=== PATIENT | male | born 1955 | race Caucasian/White ===

== ENCOUNTER → 2022-03-03 15:43 | Outpatient (BNVA) | payer OTHER, MEDICAID, SELFPAY | PROVIDERS: PCP Family Medicine; Visit Provider Urology | DX: E11.69 Type 2 diabetes mellitus with other specified complication (principal); N52.1 Erectile dysfunction due to diseases classified elsewhere | CPT/HCPCS: 99202 ==

== ENCOUNTER 2022-06-02 15:39 | Outpatient (AMB) | payer MEDICAID, SELFPAY ==
--- NOTE | 2022-06-02 15:57 | A.OFFVIS_ITS ---
Intake Intake Visit Reasons: 3 month follow up Intake Note: Patient is present for follow up Allergies No Known Allergies Allergy (Verified 05/31/23 13:08) HPI HPI Comments History of Present Illness Details Moises is a pleasant gentleman from [place]. He is a patient of Dr. Mcmanus. He is seen for the following urologic conditions - erectile dysfunction with background d iabetes Erectile dysfunction Long-term type 2 diabetic On medication for hypertension and dyslipidemia Prior treatment for syphilis Failing on demand Viagra Current therapy daily 10 mg tadalafil with on demand sildenafil 100 mg PFSH Medical History Diabetes Elevated cholesterol HTN (hypertension) Surgical History History of implantation of penile prosthesis Family History Mother No problems noted. Father No problems noted. Social History Household Members: None Housing: House Are you a primary career development coordinator/teacher to a significant other at home: No Do you presently have visiting nurse or other home services: No Patient Tobacco Use Status: Never used Tobacco Review of Systems Const Denies chills and Denies fever(s) Card Reports no additional complaints and Denies syncope Resp Denies cough GI Denies abdominal pain and Denies heartburn Reports as per HPI and Denies change in libido Neuro Denies syncope Psych Denies change in libido Endo Denies change in libido Physical Exam Const General: cooperative, healthy appearing, comfortable and no acute distress Orientation/consciousness: patient oriented x3 HEENT Face and sinus: Yes normal facial exam Mouth: moist mucous membranes Neck Neck: Yes normal visual inspection, Yes full ROM and Yes trachea midline Chest Chest palpation & inspection: normal inspection of the chest Resp Effort & Inspection: normal respiratory effort, able to speak in complete sentences and no respiratory distress GI Inspection: Yes normal to inspection Back/Spine/Pelvis Cervical Spine: normal cervical lordosis Thoracic/Lumbar Spine: thoracic and lumbar spine normal to inspection Skin General skin exam: no rashes or lesions noted Neuro General: patient oriented x3, gait normal, tone normal and moves all extremities Extrem General: Yes normal to inspection and Yes capillary refill normal Assessment & Plan Assessment & Plan (1) Dysuria: Code(s): R30.0 - Dysuria (2) Erectile dysfunction associated with type 2 diabetes mellitus: Code(s): E11.69 - Type 2 diabetes mellitus with other specified complication; N52.1 - Erectile dysfunction due to diseases classified elsewhere (3) BPH w urinary obs/LUTS: Code(s): N40.1 - Benign prostatic hyperplasia with lower urinary tract symptoms; N13.8 - Other obstructive and reflux uropathy Plan Trial high-dose tadalafil 6m f/u Medications: Refilled tadalafil 10 mg PO DAILY 90 tabs 1RF sexual activity 90 days E11.69 - Type 2 diabetes mellitus with other specified complication, N52.1 - Erectile dysfunction due to diseases classified elsewhere, N52.9 - Male erectile dysfunction, unspecified, N52.01 - Erectile dysfunction due to arterial insufficiency Patient Instructions: Imaging studies, laboratory and physical exam results were discussed and reviewed in detail. No major barriers to patient understanding were identified. An opportunity to ask questions regarding the treatment plan was provided. All questions were answered. The patient expressed understanding and agreement with the above treatment plan. The patient is aware they should contact our office by phone for worsening of their current condition or the appearance of new urologic symptoms. Compliance is encouraged with any medications and followup testing that is ordered. It is a privilege to participate in the urologic care of your patient. If you have any questions or concerns regarding treatment for the above conditions, or other urologic issues, please do not hesitate to contact me. The office telephone contact is [phone]. This note is constructed using voice recognition software. While every effort has been made to ensure accuracy solar sales consultant errors may have been included. Yours sincerely, Dr Efra Zambrano MD, [facility] - Urology Providers of Expert, Compassionate Care for the Genitourinary System Coding Level of Care Code Est Pt Level 3 (85116) Diagnoses Dysuria R30.0 Erectile dysfunction associated with type 2 diabetes mellitus E11.69; N52.1 BPH w urinary obs/LUTS N40.1; N13.8
== END 2022-06-02 16:11 | disposition home or self-care (01) ==
LOC: HO.HUSH 15:40
PROVIDERS: PCP Family Medicine; Visit Provider Urology
DX: R30.0 Dysuria (principal); E11.69 Type 2 diabetes mellitus with other specified complication; N52.1 Erectile dysfunction due to diseases classified elsewhere; N40.1 Benign prostatic hyperplasia with lower urinary tract symptoms; N13.8 Other obstructive and reflux uropathy
CPT/HCPCS: 99213; 99499

== ENCOUNTER → 2022-06-02 15:39 | Outpatient (BNVA) | payer MEDICAID, SELFPAY | PROVIDERS: PCP Family Medicine; Visit Provider Urology | DX: E11.69 Type 2 diabetes mellitus with other specified complication (principal); N52.1 Erectile dysfunction due to diseases classified elsewhere; R30.0 Dysuria; N40.1 Benign prostatic hyperplasia with lower urinary tract symptoms; N13.8 Other obstructive and reflux uropathy | CPT/HCPCS: 99212 ==

== ENCOUNTER 2022-11-14 11:45 | Outpatient (REF) | payer MEDICAID, SELFPAY ==
--- NOTE | ~2022-11-14 | XR_ITS ---
EXAMINATION: XR WRIST, LEFT CLINICAL INFORMATION: Pain COMPARISON: None available. TECHNIQUE: Four views of the left wrist. FINDINGS: Bone alignment is normal. No fracture or dislocation. There are small subchondral cysts or erosive changes in the lunate and triquetrum. 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 Joint spaces are otherwise normal. Soft tissue arterial calcification. XR/XR wrist LT min 3V IMPRESSION: No fracture or dislocation. Subchondral cystic changes at the lunotriquetral joint. 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
== END 2022-11-14 11:46 | disposition home or self-care (01) ==
LOC: HO.XRAY 11:45
PROVIDERS: PCP Family Medicine; Visit Provider Family Medicine
DX: M25.532 Pain in left wrist (principal)
CPT/HCPCS: 73110

== ENCOUNTER → 2022-12-08 14:41 | Outpatient (BNVA) | payer MEDICAID, SELFPAY | PROVIDERS: PCP Family Medicine; Visit Provider Urology | DX: E11.69 Type 2 diabetes mellitus with other specified complication (principal); N52.1 Erectile dysfunction due to diseases classified elsewhere; Z79.84 Long term (current) use of oral hypoglycemic drugs; Z79.899 Other long term (current) drug therapy | CPT/HCPCS: 99212 ==

== ENCOUNTER 2023-01-25 11:00 | Outpatient (REF) | payer MEDICAID, SELFPAY ==
[2023-01-25 13:05] LABS: Estimated Average Glucose 146 mg/dL; Hemoglobin A1c % 6.7 %
[2023-02-01 13:45] LABS: Testosterone, Total 279 ng/dL (250-1100)
== END 2023-01-25 11:01 | disposition home or self-care (01) ==
LOC: HO.LAB 11:00
PROVIDERS: PCP Urology; Visit Provider Urology
DX: E11.69 Type 2 diabetes mellitus with other specified complication (principal); N52.1 Erectile dysfunction due to diseases classified elsewhere
CPT/HCPCS: 36415; 83036; 84403

== ENCOUNTER 2023-02-12 15:59 | Outpatient (REF) | payer MEDICAID, SELFPAY ==
[2023-02-12 18:33] LABS: Estimated Average Glucose 134 mg/dL; Hemoglobin A1c % 6.3 %
[2023-02-12 18:52] LABS: Alanine Aminotransferase 28 U/L (0-40); Albumin Level 4.4 g/dL (3.5-5.0); Alkaline Phosphatase 42 U/L (39-117); Anion Gap 15 (12-20); Aspartate Amino Transferase 25 U/L (5-37); Bilirubin Total 0.6 mg/dL (0.0-1.0); Blood Urea Nitrogen 23 mg/dL (9-16); Calcium 10.3 mg/dL (8.4-10.2); Carbon Dioxide 23 mmol/L (22-29); Chloride 104 mmol/L (96-108); Estimated Glomerular Filt Rate > 60; Glucose Random 89 mg/dL (60-115); Potassium 4.3 mmol/L (3.3-5.1); Sodium 138 mmol/L (135-145); Total Protein 7.8 g/dL (6.5-8.0)
== END 2023-02-12 16:00 | disposition home or self-care (01) ==
LOC: HO.HHCL 15:59
PROVIDERS: Visit Provider Family Medicine
DX: E11.65 Type 2 diabetes mellitus with hyperglycemia (principal)
CPT/HCPCS: 36415; 80053; 83036

== ENCOUNTER 2023-02-13 15:50 | Outpatient (AMB) | payer MEDICAID, SELFPAY ==
--- NOTE | 2023-02-13 15:53 | A.OFFVIS_ITS ---
Intake Intake Visit Reasons: follow up/Testo(set) Intake Note: Patient is present for Follow Up labs Urology Med: Tadalafil , Sildenafil Antibiotic Allergy: None Blood Thinner: None Allergies No Known Allergies Allergy (Verified 06/02/22 15:57) HPI HPI Comments History of Present Illness Details Moises is a pleasant gentleman from [place]. He is a patient of Dr. Mcmanus. He is seen for the following urologic conditions - erectile dysfunction with background diabetes Follow-up for erectile dysfunction HbA1c now down to 6.3 Would be candidate for prosthetic He is interested in moving forward Continues to use vacuum pump daily Erectile dysfunction Long-term type 2 diabetic On medication for hypertension and dyslipidemia Prior treatment for syphilis Failing on demand Viagra Current therapy daily 10 mg tadalafil with on demand sildenafil 100 mg Review of Systems Const Denies chills and Denies fever(s) Card Reports no additional complaints and Denies syncope Resp Denies cough GI Denies abdominal pain and Denies heartburn Reports as per HPI and Denies change in libido Neuro Denies syncope Psych Denies change in libido Endo Denies change in libido Physical Exam Const General: cooperative, healthy appearing, comfortable and no acute distress Orientation/consciousness: patient oriented x3 HEENT Face and sinus: Yes normal facial exam Mouth: moist mucous membranes Neck Neck: Yes normal visual inspection, Yes full ROM and Yes trachea midline Chest Chest palpation & inspection: normal inspection of the chest Resp Effort & Inspection: normal respiratory effort, able to speak in complete sentences and no respiratory distress GI Inspection: Yes normal to inspection Back/Spine/Pelvis Cervical Spine: normal cervical lordosis Thoracic/Lumbar Spine: thoracic and lumbar spine normal to inspection Skin General skin exam: no rashes or lesions noted Neuro General: patient oriented x3, gait normal, tone normal and moves all extremities Extrem General: Yes normal to inspection and Yes capillary refill normal Assessment & Plan Assessment & Plan (1) Erectile dysfunction associated with type 2 diabetes mellitus: Code(s): E11.69 - Type 2 diabetes mellitus with other specified complication; N52.1 - Erectile dysfunction due to diseases classified elsewhere Plan Risks, benefits and alternatives to therapy were discussed. These include but are not limited to infection, bleeding, damage to local organs and tissues, need for further interventions. Anesthetic risks regarding cardiac arrhythmia, blood clots, and potential mortality were discussed. The patient understands the typical recovery time and the outpatient nature of the procedure. After consideration of these risks the patient gives full infor med consent and they wish to move ahead with the procedure. Penile prosthetic 3 piece insertion Patient Instructions: Imaging studies, laboratory and physical exam results were discussed and reviewed in detail. No major barriers to patient understanding were identified. An opportunity to ask questions regarding the treatment plan was provided. All questions were answered. The patient expressed understanding and agreement with the above treatment plan. The patient is aware they should contact our office by phone for worsening of their current condition or the appearance of new urologic symptoms. Compliance is encouraged with any medications and followup testing that is ordered. It is a privilege to participate in the urologic care of your patient. If you have any questions or concerns regarding treatment for the above conditions, or other urologic issues, please do not hesitate to contact me. The office telephone contact is [phone]. This note is constructed using voice recognition software. While every effort has been made to ensure accuracy senior medical transcriptionist errors may have been included. Yours sincerely, Dr Efra Zambrano MD, [facility] - Urology Providers of Expert, Compassionate Care for the Genitourinary System Coding Level of Care Code Est Pt Level 4 (23097) Diagnoses Erectile dysfunction associated with type 2 diabetes mellitus E11.69; N52.1
== END 2023-02-13 16:26 | disposition home or self-care (01) ==
PROVIDERS: Visit Provider Urology
DX: E11.69 Type 2 diabetes mellitus with other specified complication (principal); N52.1 Erectile dysfunction due to diseases classified elsewhere
CPT/HCPCS: 99214

== ENCOUNTER → 2023-02-13 15:50 | Outpatient (BNVA) | payer MEDICAID, SELFPAY | PROVIDERS: Visit Provider Urology | DX: E11.69 Type 2 diabetes mellitus with other specified complication (principal); N52.1 Erectile dysfunction due to diseases classified elsewhere | CPT/HCPCS: 99212 ==

== ENCOUNTER 2023-04-30 06:10 | Day surgery (SDC) | payer MEDICAID, SELFPAY ==
[2023-04-26 13:03] VITALS: BMI 24.8
[2023-04-26 13:17] VITALS: BMI 23.9
--- NOTE | 2023-04-27 11:58 | P.CONAN_ITS ---
Documented by User: Nettie Jennings NP 04/27/23 12:00 HPI - Anesthesia Eval Consult details Narrative: 67yo M for Penile Prosthesis Insertion Medically optimized per PCP PMF Active Problems Active Problems: All Active Problems (Updated 04/26/23 @ 13:15 by Daya Mcgregor RN) Erectile dysfunction associated with type 2 diabetes mellitus (Acute) Past Medical History Medical History Diabetes Elevated cholesterol HTN (hypertension) Surgical History Surgical History No pertinent past surgical history Social History Social History Household Members: None Housing: House Are you a primary healthcare economics manager to a significant other at home: No Do you presently have visiting nurse or other home services: No Patient Tobacco Use Status: Never used Tobacco Use of substances other than those prescribed or required for medical reasons: No Have you been hit, kicked, punched, or otherwise hurt by someone within the past year? If so, by whom?: No Are you DNR?: No Advance Directives: No Advance Directives Information Provided: Yes Advance Directives on File: No Recently lost weight without trying: No Nutrition Risks: No Nutritional Risk Meds Allergies Allergy/AdvReac Type Severity Reaction Status Date / Time No Known Allergies Allergy Verified 04/26/23 13:15 Home Medications Medication Instructions Recorded Confirmed Last Taken Type glipizide 10 mg tablet 10 mg PO BID 03/03/22 04/26/23 Unknown History lisinopril 10 mg tablet 10 mg PO DAILY 03/03/22 04/26/23 Unknown History metformin 1,000 mg tablet 1,000 mg PO DAILY 03/03/22 04/26/23 Unknown History simvastatin 20 mg tablet 20 mg PO QPM 03/03/22 04/26/23 Unknown History Exam Exam Date and Time: April 27, 2023 1158 Height,Weight and Vital Signs: Height 5 ft 4.96 in Weight 65 kg Pertinent Lab Results Pertinent Lab Results: Laboratory Tests 02/12/23 16:04 Sodium 138 Potassium 4.3 Chloride 104 Carbon Dioxide 23 BUN 23 H Creatinine 0.95 Assessment and Plan Assessment Anesthesia Assessment: Chart Reviewed Documented by User: Shea Cameron MD 04/30/23 08:52 PMFSH Active Problems Active Problems: All Active Problems (Updated 04/30/23 @ 08:49 by Shea Cameron MD) Erectile dysfunction associated with type 2 diabetes mellitus (Acute) Past Medical History Medical History Diabetes Elevated cholesterol HTN (hypertension) Surgical History Surgical History No pertinent past surgical history Social History Social History Household Members: None Housing: House Are you a primary healthcare economics manager to a significant other at home: No Do you presently have visiting nurse or other home services: No Patient Tobacco Use Status: Never used Tobacco Use of substances other than those prescribed or required for medical reasons: No Have you been hit, kicked, punched, or otherwise hurt by someone within the past year? If so, by whom?: No Are you DNR?: No Advance Directives: No Advance Directives Information Provided: Yes Advance Directives on File: No Recently lost weight without trying: No Nutrition Risks: No Nutritional Risk Meds Allergies Allergy/AdvReac Type Severity Reaction Status Date / Time No Known Allergies Allergy Verified 04/26/23 13:15 Home Medications Medication Instructions Recorded Confirmed Last Taken Type glipizide 10 mg tablet 10 mg PO BID 03/03/22 04/26/23 Unknown History lisinopril 10 mg tablet 10 mg PO DAILY 03/03/22 04/26/23 Unknown History metformin 1,000 mg tablet 1,000 mg PO DAILY 03/03/22 04/26/23 Unknown History simvastatin 20 mg tablet 20 mg PO QPM 03/03/22 04/26/23 Unknown History Exam Height,Weight and Vital Signs: Height 5 ft 4.96 in Weight 65 kg Vital Signs Temp Pulse Resp BP Pulse Ox O2 Del Method 04/30/23 07:59 97.4 F 67 16 139/75 97 Room Air
[2023-04-30] VITALS (10 sets, daily range): BP systolic 135–155; BP diastolic 66–75; PULSE 64–73; RESP 16–20; TEMP 36.1–36.3; O2SAT 96–100; BMI 24.2
[2023-04-30] MEDS: Lactated Ringers 1,000 ML 100 ML IVCONT (08:29)
[2023-04-30 08:56] LABS: Glucose, Whole Blood 135 mg/dL (60-115)
--- NOTE | 2023-04-30 09:37 | PC.NURSE ---
patient speaks tamazight or yoruba. used a [employer] derrick boat captain to let patient know that we are awaiting for the prosthesis from another hospital if available to proceed with procedure. patient aware of plan of care. used a [employer] derrick boat captain.
[2023-04-30 14:20] LABS: Glucose, Whole Blood 59 mg/dL (60-115)
[2023-04-30 14:20] LABS: Glucose, Whole Blood 144 mg/dL (60-115)
--- NOTE | 2023-04-30 14:22 | P.HPSUR_ITS ---
Pre-Procedural Eval Section A Date of Service: 04/30/23 The patient is an INPATIENT: No Changes since office visit: No Cold of Flu in the past 2 weeks, No New Medical Problems, No Changes in Medication and No Patient answered all questions The History & Physical has been completed within 30 days and I have reviewed it.: Yes Section B Chief Complaint: Type 2 diabetes mellitus with other specified comp Relevant Social History: None Present Medications: see Short Stay Collaborative assessment Medical History: No relevant PMH History of Previous Operations: No relevant previous surgery Allergies: Allergies Allergy/AdvReac Type Severity Reaction Status Date / Time No Known Allergies Allergy Verified 04/26/23 13:15 Review of Systems Sugical H&P ROS: Negative: Constitution, Cardiovascular, Respiratory, Neur ological, Psychiatric, Hem-Onc, Allergic/Immunologic, Gastrointestinal, Genitourinary, Musculoskeletal, Integumentary, Endocrine and Eyes/Ears/Nose/Throat Exam Surgical H&P Exam: Normal: HEENT, Normal: Heart, Normal: Lungs, Normal: Extremities, Normal: Abdomen, Normal: Skin and Normal: Neurological Plan Diagnosis/Plan: Unchanged ( penile prosthetic placement) I have reviewed the history and physical and performed a pertinent physical examination on my patient. No changes have occurred unless specified. Time Spent With Patient Time: Total time managing care of this patient today ____ minutes.
--- NOTE | 2023-04-30 14:39 | HO.ANESPROP2 ---
HPI - Anesthesia Eval Consult details Narrative: for penile prosthesis PMFSH Active Problems Active Problems: All Active Problems (Updated 04/27/23 @ 12:23 by Shayy Porras RN) Erectile dysfunction associated with type 2 diabetes mellitus (Acute) Past Medical History Medical History Diabetes Elevated cholesterol HTN (hypertension) Family History Family history of problems with anesthesia: No Surgical History Surgical History No pertinent past surgical history History of Problems with Anesthesia: No Social History Social History Household Members: None Housing: House Are you a primary gericare aide teacher to a significant other at home: No Do you presently have visiting nurse or other home services: No Patient Tobacco Use Status: Never used Tobacco Use of substances other than those prescribed or required for medical reasons: No Have you been hit, kicked, punched, or otherwise hurt by someone within the past year? If so, by whom?: No Are you DNR?: No Advance Directives: No Advance Directives Information Provided: Yes Advance Directives on File: No Recently lost weight without trying: No Nutrition Risks: No Nutritional Risk Meds Allergies Allergy/AdvReac Type Severity Reaction Status Date / Time No Known Allergies Allergy Verified 04/26/23 13:15 Active Medications: Current Medications Lactated Ringer's (Lr) 1,000 mls @ 100 mls/hr IVCONT .Q10H ADA Last Admin: 04/30/23 08:29 Dose: 100 mls/hr Home Medications Medication Instructions Recorded Confirmed Last Taken Type glipizide 10 mg tablet 10 mg PO BID 03/03/22 04/26/23 Unknown History lisinopril 10 mg tablet 10 mg PO DAILY 03/03/22 04/26/23 Unknown History metformin 1,000 mg tablet 1,000 mg PO DAILY 03/03/22 04/26/23 Unknown History simvastatin 20 mg tablet 20 mg PO QPM 03/03/22 04/26/23 Unknown History Exam Exam Date and Time: April 30, 2023 1439 Height,Weight and Vital Signs: Height 5 ft 4.96 in Weight 65.828 kg Last Vital Signs Temp 97.4 F 04/30/23 07:59 Pulse 67 04/30/23 07:59 Resp 16 04/30/23 07:59 BP 139/75 04/30/23 07:59 Pulse Ox 97 04/30/23 07:59 O2 Del Method Room Air 04/30/23 07:59 Pertinent Lab Results Pertinent Lab Results: Laboratory Tests 04/30/23 04/30/23 04/30/23 08:53 13:53 14:16 POC Glucose 135 H 59 L* 144 H Airway Mallampati Class: I TM Dist: >3cm Neck ROM: Full Denture: Upper and Lower Heart: ok Lungs: ok Assessment and Plan Assessment Anesthesia Assessment: Anesthesia Plan Discussed and Chart Reviewed Final Anesthetic Review Family History of Problems with Anesthesia: No History of Problems with Anesthesia: No NPO: Yes ASA Class: II Final Preanesthetic Review: No Changes in Pt Med Stat, Meds/Allgs Chart Reviewed, Consent Obtained/Reviewed and Anes Risks/Benef Reviewed Patient Risk: Low Procedure Risk: Low Anesthetic Plan Anesthetic Plan: GA and Agree w/ Assess. and Plan Disposition: Standard PACU
--- NOTE | 2023-04-30 17:16 | P.OP_ITS ---
Operative Note Operative Note Date of Service: 04/30/23 Narrative: PreOperative Diagnosis: Erectile dysfunction in setting of diabetes Post Operative Diagnosis: Erectile dysfunction with Peyronie's disease in setting of diabetes Procedure: Placement of inflatable penile prosthetic, manual manipulation for adjustment of prior needs disease Surgeon: Dr Efra Zambrano Anesthesia: General Indications for procedure: Progressive erectile dysfunction in setting of diabetes. Non responsive to oral or injectable medications. Maximum doses have been trialed. Has completed minimum of 6 weeks with penile vacuum pump in order to maximize potential placement. Is aware of the risks and benefits particularly related to mechanical failure, infection, loss of sensation. Procedure: After informed consent was verified the patient was brought to the operating room and placed in a supine position. Anesthesia was administered per protocol. The patient was shaved with clippers, and prepped with cholhexidine based solution. He was draped in a sterile fashion. Safety pause time-out performed. Standard antibiotic per modified 2019 guideline - IV Kefzol, gentamicin and fluconazole. Tyler catheter was placed on the field. Bladder was drained. [place] retractor with penile support was placed. Local antibiotics infiltrated horizontally 1,5cm proximal from the penoscrotal junction. Dorsal nerve block was placed inferior to the symphsis pubis in the midline and perineal/crural block was placed 1 fingerbreadth lateral to the midline angled at 45 degrees. A horizontal scrotal incision was made and taken down to the tunica. Dissection was performed 1st on the left side and then on the right side to fully expose the proximal tunica of the corpora. Midline dissection was required to lift off the median attachments. At this point stay hooks were placed. A double row of 3-0 Vicryl stay sutures were placed through the distal tunica with 1cm spacing and labeled and marked bilaterally. Firstly on the left side an incision was made between the 2 rows of stay sutures through the tunica. This was approximately 2.5 cm in length. Using Hegar dilators the corporal body was dilated until it could accept a 12 Hegar dilator. The distal portion of the corpora was noted to be fibrosed with distinct feeling of Peyronie's plaque running circumferentially and causing narrowing of the corporal body. A similar dissection was repeated on the right-hand side. The distal corporal plaque from the Peyronie's was also notable. After dilation each corporal body were washed with antibiotic normal saline. At this point the measuring device was introduced. Posterior measured at 7cm and the front measured approximately 10 cm on the left. On the right 8 cm and 10 cm respectively. Based on the considerations from dilatation a penile prosthetic [employer] 15 cm CX with 3cm On the right and 1 cm on the left. Prior to prosthetic preparation using blunt dissection the right inguinal canal was palpated and using a Francy clamp a small hole was punched in the posterior wall of the medial aspect of the inguinal canal. This was enlarged with the tip of the index finger. A flat reservoir was then placed through this hole into the preperitoneal, retro body wall space. This was filled with 95 cc and had minimal pressure. Clamps were placed. The introducer needle was used to thread the distal tip thread from the prostatic on the left side. This was then placed through the corporal defect and the needle advanced out through the glans of the penis. The prosthetic was then placed into the corporal body with the posterior aspect 1st using the enclosed pusher device. Once the posterior aspect had been introduced the anterior aspect was then introduced and brought out to the distal portion of the corpora. This was done 1st on the left side and then repeated on the right side. The prosthetic was then inflated approximately 80 cc of normal saline. The penile prosthetic was deflated. The stay sutures through the tunica were then secured bilaterally. The penile prosthetic was inflated for a 2nd time. Molding was performed in order to address the distal Peyronie's disease. The scrotum was irrigated. The excess tubing was cut. The ends were spiritzed with fluid. The compression fittings were placed and locked using the compression clamp. Effective length of tubing had been placed in the clamp and the 2 ends were now secured. The penile prosthetic was then refilled to ensure proper function and adequate flow between the reservoir and the prosthetic. Blunt dissection was performed to create a scrotal pocket. The pump was placed into the scrotal pocket and held using a clamp. 3-0 Vicryl was then used to secure tissue so the pump was kept in the dependent position. Tissue was reapproximated with 3-0 Vicryl in both the horizontal and then vertical fashion. At least 2 layers were placed over all tubing. Skin was closed using interrupted 5-0 chromic sutures. The wounds were cleaned and dried and a sterile dressing placed that kept the penis in an upright position pointing towards the chin. A modified Mummy dressing was placed. Two pumps had been placed into the prosthetic so it is partially filled. A cap was left on the Tyler catheter to allow drainage for the next 48 hours. He tolerated the procedure well was extubated in operating room transferred in stable condition to the recovery area. Pathology: None Drains: 18 Somali Tyler catheter
[2023-04-30] MEDS: fentaNYL citrate/PF 100 MCG/2 ML VIAL 50 MCG IVPUSH (17:39)
[2023-04-30] MEDS: oxyCODONE HCl Immed Release 5 MG TABLET PO (18:10)
--- NOTE | 2023-04-30 18:12 | PC.NURSE ---
1710 MEDICATED FOR COMPLAINTS OF PENILE PAIN. AWAKE CONVERSING RESP EASY REGULAR TOLERATING PO FLUIDS.
[2023-04-30 18:50] LABS: Glucose, Whole Blood 68 mg/dL (60-115)
[2023-04-30 18:50] LABS: Glucose, Whole Blood 110 mg/dL (60-115)
== END 2023-04-30 18:45 | disposition home or self-care (01) ==
PROVIDERS: PCP Family Medicine; Visit Provider Urology
PROC: (CPT 54405; principal; 2023-04-30 09:10)
DX: E11.69 Type 2 diabetes mellitus with other specified complication (principal); N52.1 Erectile dysfunction due to diseases classified elsewhere; N48.6 Induration penis plastica; I10 Essential (primary) hypertension; E78.5 Hyperlipidemia, unspecified; Z79.84 Long term (current) use of oral hypoglycemic drugs; Z79.899 Other long term (current) drug therapy; Z86.19 Personal history of other infectious and parasitic diseases
CPT/HCPCS: 54405; 82947; C1813; J0690; J1450; J1580; J2405; J2795; J3010

== ENCOUNTER → 2023-04-30 06:10 | Outpatient (BNV) | payer MEDICAID, SELFPAY | PROVIDERS: PCP Family Medicine; Visit Provider Urology | DX: E11.69 Type 2 diabetes mellitus with other specified complication (principal); N52.1 Erectile dysfunction due to diseases classified elsewhere | CPT/HCPCS: 54405 ==

== ENCOUNTER → 2023-05-02 09:17 | Outpatient (BNVA) | payer MEDICAID, SELFPAY | PROVIDERS: PCP Family Medicine; Visit Provider Urology ==

== ENCOUNTER 2023-05-07 13:35 | Outpatient (AMB) | payer MEDICAID, SELFPAY ==
--- NOTE | 2023-05-07 13:37 | A.OFFVIS_ITS ---
Intake Intake Visit Reasons: penile pain s/p prosthesis Intake Note: Patient presents today Penile Pain, s/p Prothesis: Meds- Pyridium, Sildenafil, Bactrim & Tadalafil Allergies to Antibiotic- No Known Allergies Blood Thinner- None Patient Symptoms: Penile Pain Craps Manager Required: No Accompanied by: Self / Same As Patient Allergies No Known Allergies Allergy (Verified 05/16/23 11:51) Medication List - Last Reconciled 05/07/23 by Reji Dyer MD cephalexin 500 mg PO BID 3 days glipizide 10 mg PO BID lisinopril 10 mg PO DAILY metformin 1,000 mg PO DAILY oxycodone-acetaminophen 5-325 mg 1 tab PO Q4H PRN 7 days oxycodone-acetaminophen 5-325 mg 1 tab PO Q4H PRN phenazopyridine (Pyridium) 100 mg PO TID PRN 4 days phenazopyridine (Pyridium) 100 mg PO TID PRN 4 days sildenafil 100 mg PO ONCE PRN 30 days simvastatin 20 mg PO QPM tadalafil 10 mg PO DAILY 90 days HPI HPI Comments History of Present Illness Details Moises is a 67-year-old male who presents today to the office for a follow-up. 05/07/2023? He has seen Efra Beckham for erectile dysfunction. Patient also has a history of diabetes and hypertension. ? He is status post prosthesis done on 04/30/2023.? He is being seen as an urgent visit due to penile pain. On exam- the penile prosthesis is inflated and penis is erect, I am not able to manipulate the pump to disengage device. I will have come in to see Dr. Zambrano tomorrow. Evaluation today?UA? leukocytes: negative; blood: 10 Emmanuel' bladder scan PVR: 0 mL. Plan: Prescribed cephalexin 500 mg BID for 3 days. Refilled oxycodone-acetaminophen. FORMERLY [facility], [facility]–1983 Medical History Diabetes Elevated cholesterol HTN (hypertension) Surgical History History of implantation of penile prosthesis Family History Mother No problems noted. Father No problems noted. Social History Household Members: None Housing: House Are you a primary health care sanitary technician to a significant other at home: No Do you presently have visiting nurse or other home services: No Patient Tobacco Use Status: Never used Tobacco Review of Systems Const All systems reviewed & are unremarkable except as noted in HPI and below Reports no additional complaints Eyes Reports no additional complaints ENT Reports no additional complaints Card Denies dyspnea Resp Denies cough and Denies dyspnea GI Reports no additional complaints Musc Reports no additional complaints Skin/Breast Denies rash and Denies unusual bruising Neuro Reports no additional complaints Psych Reports no additional complaints Endo Reports no additional complaints Gerardo/Lymph Reports no additional complaints Aller/Immun Reports no additional complaints Physical Exam Const General: healthy appearing, no acute distress and well developed Orientation/consciousness: patient oriented x3 HEENT Head: Yes normocephalic and Yes atraumatic Eyes Conjunctivae: conjunctivae normal Neck Neck: Yes normal visual inspection Chest Chest palpation & inspection: normal inspection of the chest Resp Effort & Inspection: normal respiratory effort Cardio Rate: regular rate GI Inspection: Yes normal to inspection Other: The penile prosthesis is inflated and penis is erect, I am not able to manipulate the pump to disengage device. Scrotum: scrotum normal Skin General skin exam: no rashes or lesions noted Neuro General: patient oriented x3 Extrem General: No pedal edema Psych Appearance: grossly normal Affect: normal affect Results AMB Urinalysis, Automated UA Leukoctes 0 Xochilt/uL Last Edit by GENARO Bonner on 05/07/23 13:48 UA Nitrite Negative Last Edit by GENARO Bonner on 05/07/23 13:48 UA Urobilinogen 0.2 mg/dL Last Edit by GENARO Bonner on 05/07/23 13:4 8 UA Protein 0 mg/dL Last Edit by GENARO Bonner on 05/07/23 13:48 UA pH 6.0 Last Edit by ANISA BonnerA on 05/07/23 13:48 UA Blood 10 Emmanuel/uL Last Edit by ANISA BonnerA on 05/07/23 13:48 UA Specific [place] 1.020 Last Edit by GENARO Bonner on 05/07/23 13: 48 UA Ketone Negative Last Edit by GENARO Bonner on 05/07/23 13:48 UA Bilirubin 0 mg/dL Last Edit by ANISA BonnerA on 05/07/23 13:48 UA Glucose 0 mg/dL Last Edit by GENARO Bonner on 05/07/23 13:48 Results Reviewed Results Reviewed: Laboratory Last Values Urine pH (Auto) 6.0 05/07/23 13:45 Specific [place] (Auto) 1.020 05/07/23 13:45 Urine Protein (Auto) 0 mg/dL 05/07/23 13:45 Glucose (UA)(Auto) 0 mg/dL 05/07/23 13:45 Urine Ketones (Auto) Negative 05/07/23 13:45 Urine Blood (Auto) 10 Emmanuel/uL 05/07/23 13:45 Urine Nitrite (Auto) Negative 05/07/23 13:45 Urine Bilirubin (Auto) 0 mg/dL 05/07/23 13:45 Urine Urobilinogen (Auto) 0.2 mg/dL 05/07/23 13:45 Leukocyte Esterase (Auto) 0 Xochilt/uL 05/07/23 13:45 Assessment & Plan Assessment & Plan (1) Erectile dysfunction associated with type 2 diabetes mellitus: Code(s): E11.69 - Type 2 diabetes mellitus with other specified complication; N52.1 - Erectile dysfunction due to diseases classified elsewhere (2) Painful penile erection: Code(s): N48.30 - Priapism, unspecified Plan Prescribed cephalexin 500 mg BID for 3 days. Refilled oxycodone-acetaminophen. Orders: Orders AMB Urinalysis Automated 05/07/23 Z13.9 - Encounter for screening, unspecified Medications: New cephalexin 500 mg PO BID 6 caps 0RF 3 days Changed From oxycodone-acetaminophen 5-325 mg Partial Fill upon patient request. 1 tab PO Q4H 7 days PRN 14 tabs 0RF pain (scale score 4-6) To oxycodone-acetaminophen 5-325 mg Partial Fill upon patient request. 1 tab PO Q4H PRN 12 tabs 0RF pain (scale score 4-6) Patient Instructions: The patient had an opportunity to ask questions regarding treatment plan. All questions were answered. Imaging, Laboratory studies and physical exam results were discussed and reviewed in detail. No major barriers to understanding were identified. The patient expressed understanding and agreement with the above treatment plan.? ? ? The patient is aware they should contact our office by phone for worsening of their current condition or the appearance of new symptoms. Compliance is encouraged with any medications and followup testing that is ordered.? ? ? It is a privilege to be allowed the opportunity to participate in the urologic care of your patient. If you have any questions or concerns regarding treatment for the above conditions please do not hesitate to contact me. The office telephone contact is [phone].? ? ? This note is constructed in part using voice recognition software. While every effort has been made to ensure accuracy park ranger errors may have been included.? ? ? Yours sincerely,? ? ? Reji Dyer MD? Coding Level of Care Code Est Pt Level 3 (51602) Diagnoses Erectile dysfunction associated with type 2 diabetes mellitus E11.69; N52.1 Painful penile erection N48.30
== END 2023-05-07 15:00 | disposition home or self-care (01) ==
PROVIDERS: PCP Family Medicine; Visit Provider Urology
DX: E11.69 Type 2 diabetes mellitus with other specified complication (principal); N52.1 Erectile dysfunction due to diseases classified elsewhere; N48.30 Priapism, unspecified
CPT/HCPCS: 99024

== ENCOUNTER → 2023-05-07 13:35 | Outpatient (BNVA) | payer MEDICAID, SELFPAY | PROVIDERS: PCP Family Medicine; Visit Provider Urology | DX: E11.69 Type 2 diabetes mellitus with other specified complication (principal); N52.1 Erectile dysfunction due to diseases classified elsewhere; N48.30 Priapism, unspecified | CPT/HCPCS: 81003; 99212 ==

== ENCOUNTER 2023-05-08 10:15 | Outpatient (AMB) | payer MEDICAID, SELFPAY ==
--- NOTE | 2023-05-08 10:17 | MHC.OFFVIS ---
Intake Intake Visit Reasons: Penile Pain (Per Dr Zambrano) Intake Note: Patient is Present for Follow Up Penile Pain Urology Medication: Sildenafil, Tadalafil Antibiotic Allergies: None Blood Thinners: None Pharmacy: [facility] Compliants: Patient is having severe pain. States that he is uncomfortable when sitting, moving etc. Patient saw Dr Gleason yesterday in [place] but was unable to dedlate. Allergies No Known Allergies Allergy (Verified 05/16/23 11:51) HPI HPI Comments History of Present Illness Details Moises is a pleasant gentleman from [place]. He is a patient of Dr. Mcmanus. He is seen for the following urologic conditions - erectile dysfunction with background diabetes Pain with penile prosthetic Partially inflated Deflated in office Well-healing incision Erectile dysfunction Long-term type 2 diabetic On medication for hypertension and dyslipidemia Prior treatment for syphilis Failing on demand Viagra 03/28 Penile Prosthesis Placement Current therapy daily 10 mg tadalafil with on demand sildenafil 100 mg PFSH Medical History Diabetes Elevated cholesterol HTN (hypertension) Surgical History History of implantation of penile prosthesis Family History Mother No problems noted. Father No problems noted. Social History Household Members: None Housing: House Are you a primary field care advocate to a significant other at home: No Do you presently have visiting nurse or other home services: No Patient Tobacco Use Status: Never used Tobacco Review of Systems Const Denies chills and Denies fever(s) Card Reports no additional complaints and Denies syncope Resp Denies cough GI Denies abdominal pain and Denies heartburn Reports as per HPI and Denies change in libido Neuro Denies syncope Psych Denies change in libido Endo Denies change in libido Physical Exam Const General: cooperative, healthy appearing, comfortable and no acute distress Orientation/consciousness: patient oriented x3 HEENT Face and sinus: Yes normal facial exam Mouth: moist mucous membranes Neck Neck: Yes normal visual inspection, Yes full ROM and Yes trachea midline Chest Chest palpation & inspection: normal inspection of the chest Resp Effort & Inspection: normal respiratory effort, able to speak in complete sentences and no respiratory distress GI Inspection: Yes normal to inspection Back/Spine/Pelvis Cervical Spine: normal cervical lordosis Thoracic/Lumbar Spine: thoracic and lumbar spine normal to inspection Skin General skin exam: no rashes or lesions noted Neuro General: patient oriented x3, gait normal, tone normal and moves all extremities Extrem General: Yes normal to inspection and Yes capillary refill normal Assessment & Plan Assessment & Plan (1) BPH w urinary obs/LUTS: Code(s): N40.1 - Benign prostatic hyperplasia with lower urinary tract symptoms; N13.8 - Other obstructive and reflux uropathy (2) Erectile dysfunction associated with type 2 diabetes mellitus: Code(s): E11.69 - Type 2 diabetes mellitus with other specified complication; N52.1 - Erectile dysfunction due to diseases classified elsewhere Plan 6 week follow-up for activation Medications: New tamsulosin 0.4 mg PO BEDTIME 14 caps 0RF 14 days N40.1 - Benign prostatic hyperplasia with lower urinary tract symptoms, N13.8 - Other obstructive and reflux uropathy, N20.0 - Calculus of kidney Patient Instructions: Imaging studies, laboratory and physical exam results were discussed and reviewed in detail. No major barriers to patient understanding were identified. An opportunity to ask questions regarding the treatment plan was provided. All questions were answered. The patient expressed understanding and agreement with the above treatment plan. The patient is aware they should contact our office by phone for worsening of their current condition or the appearance of new urologic symptoms. Compliance is encouraged with any medications and followup testing that is ordered. It is a privilege to participate in the urologic care of your patient. If you have any questions or concerns regarding treatment for the above conditions, or other urologic issues, please do not hesitate to contact me. The office telephone contact is [phone]. This note is constructed using voice recognition software. While every effort has been made to ensure accuracy suture gauger errors may have been included. Yours sincerely, Dr Efra Zambrano MD, [facility] - Urology Providers of Expert, Compassionate Care for the Genitourinary System Coding Level of Care Code Global (75254) Diagnoses BPH w urinary obs/LUTS N40.1; N13.8 Erectile dysfunction associated with type 2 diabetes mellitus E11.69; N52.1
== END 2023-05-08 11:28 | disposition home or self-care (01) ==
PROVIDERS: PCP Family Medicine; Visit Provider Urology
DX: N40.1 Benign prostatic hyperplasia with lower urinary tract symptoms (principal); N13.8 Other obstructive and reflux uropathy; E11.69 Type 2 diabetes mellitus with other specified complication; N52.1 Erectile dysfunction due to diseases classified elsewhere
CPT/HCPCS: 99024

== ENCOUNTER → 2023-05-08 10:15 | Outpatient (BNVA) | payer MEDICAID, SELFPAY | PROVIDERS: PCP Family Medicine; Visit Provider Urology ==

== ENCOUNTER 2023-05-16 11:21 | Outpatient (AMB) | payer MEDICAID, SELFPAY ==
--- NOTE | 2023-05-16 11:46 | MHC.OFFVIS ---
Intake Intake Visit Reasons: 2 week (penile Pros) Intake Note: Patient is Present for Follow Up Urology Medication:TADALAFIL Antibiotic Allergies: NKA Blood Thinners:ACETAMINOPHEN Pharmacy: [facility] Compliants: pt complains of pain Allergies No Known Allergies Allergy (Verified 05/16/23 11:51) HPI HPI Comments History of Present Illness Details Moises is a pleasant gentleman from [place]. He is a patient of Dr. Mcmanus. He is seen for the following urologic conditions - erectile dysfunction with background diabetes Follow-up for erectile dysfunction Activate pump - patient shown how to inflate and deflate Flaherty ring pump provided He is concerned about some redness and incision Short course antibiotics provided 6 week follow-up Erectile dysfunction Long-term type 2 diabetic On medication for hypertension and dyslipidemia Prior treatment for syphilis Failing on demand Viagra 03/28 Penile Prosthesis Placement Current therapy daily 10 mg tadalafil with on demand sildenafil 100 mg PFSH Medical History Diabetes Elevated cholesterol HTN (hypertension) Surgical History History of implantation of penile prosthesis Family History Mother No problems noted. Father No problems noted. Social History Household Members: None Housing: House Are you a primary care transport nurse to a significant other at home: No Do you presently have visiting nurse or other home services: No Patient Tobacco Use Status: Never used Tobacco Review of Systems Const Denies chills and Denies fever(s) Card Reports no additional complaints and Denies syncope Resp Denies cough GI Denies abdominal pain and Denies heartburn Reports as per HPI and Denies change in libido Neuro Denies syncope Psych Denies change in libido Endo Denies change in libido Physical Exam Const General: cooperative, healthy appearing, comfortable and no acute distress Orientation/consciousness: patient oriented x3 HEENT Face and sinus: Yes normal facial exam Mouth: moist mucous membranes Neck Neck: Yes normal visual inspection, Yes full ROM and Yes trachea midline Chest Chest palpation & inspection: normal inspection of the chest Resp Effort & Inspection: normal respiratory effort, able to speak in complete sentences and no respiratory distress GI Inspection: Yes normal to inspection Back/Spine/Pelvis Cervical Spine: normal cervical lordosis Thoracic/Lumbar Spine: thoracic and lumbar spine normal to inspection Skin General skin exam: no rashes or lesions noted Neuro General: patient oriented x3, gait normal, tone normal and moves all extremities Extrem General: Yes normal to inspection and Yes capillary refill normal Assessment & Plan Assessment & Plan (1) Dysuria: Code(s): R30.0 - Dysuria Plan Six week follow-up Medications: New sulfamethoxazole-trimethoprim 800-160 mg (Bactrim DS) 1 tab PO BID 10 tabs 0RF 5 days R30.0 - Dysuria, N39.0 - Urinary tract infection, site not specified Patient Instructions: Imaging studies, laboratory and physical exam results were discussed and reviewed in detail. No major barriers to patient understanding were identified. An opportunity to ask questions regarding the treatment plan was provided. All questions were answered. The patient expressed understanding and agreement with the above treatment plan. The patient is aware they should contact our office by phone for worsening of their current condition or the appearance of new urologic symptoms. Compliance is encouraged with any medications and followup testing that is ordered. It is a privilege to participate in the urologic care of your patient. If you have any questions or concerns regarding treatment for the above conditions, or other urologic issues, please do not hesitate to contact me. The office telephone contact is [phone]. This note is constructed using voice recognition software. While every effort has been made to ensure accuracy metal alloy scientist errors may have been included. Yours sincerely, Dr Efra Zambrano MD, [facility] - Urology Providers of Expert, Compassionate Care for the Genitourinary System Coding Level of Care Code Global (80121) Diagnoses Dysuria R30.0
== END 2023-05-16 13:12 | disposition home or self-care (01) ==
PROVIDERS: PCP Family Medicine; Visit Provider Urology
DX: R30.0 Dysuria (principal)
CPT/HCPCS: 99024

== ENCOUNTER → 2023-05-16 11:21 | Outpatient (BNVA) | payer MEDICAID, SELFPAY | PROVIDERS: PCP Family Medicine; Visit Provider Urology ==

== ENCOUNTER 2023-05-24 10:53 | Outpatient (REF) | payer MEDICAID, SELFPAY ==
[2023-05-24 12:10] LABS: Appearance Urine Clear; Color Urine Yellow; Glucose Urine UA >=1000 mg/dL (Negative); Leukocyte Esterase Urine Negative (Negative); Nitrite Urine Negative (Negative); PH 5.5 (5.0-9.0); Specific Gravity - Urine >= 1.030 (1.005-1.025); UMIC TRIGGER UA YES; Urine Blood Negative (Negative); Urine Ketones Negative (Negative); Urine Protein Negative (Neg-Trace)
[2023-05-24 12:13] LABS: Bacteria Urine None Seen (None Seen); Hyaline Casts Urine 0-2 /LPF (0-2); RBC Urine 0-2 /HPF (0-2); Squamous Epithelial Cell Urine 0-2 /HPF (0-2); WBC Urine 0-5 /HPF (0-5)
== END 2023-05-24 10:54 | disposition home or self-care (01) ==
LOC: HO.LAB 10:53
PROVIDERS: PCP Family Medicine; Visit Provider Urology
DX: R30.0 Dysuria (principal)
CPT/HCPCS: 81001; 87086

== ENCOUNTER → 2023-05-31 12:48 | Outpatient (AMB) | payer MEDICAID, SELFPAY ==
--- NOTE | 2023-05-31 13:07 | MHC.OFFVIS ---
Intake Intake Visit Reasons: cysto- pain after surgery Intake Note: Patient presents today for a CYSTOSCOPY Procedure: Meds: None Allergies to Antibiotic: No Known Allergies Blood Thinner: None Urinalysis test cleared for Cysto Disposable Uro-G Cystoscope Cannula: Lot: [id number] Exp: 12/17/2024 Fabric Coating Supervisor Required: No Accompanied by: Self / Same As Patient Allergies No Known Allergies Allergy (Verified 05/31/23 13:08) Medication List - Last Reconciled 05/31/23 by Efra Zambrano MD cephalexin 500 mg PO BID 3 days glipizide 10 mg PO BID lisinopril 10 mg PO DAILY metformin 1,000 mg PO DAILY oxycodone-acetaminophen 5-325 mg 1 tab PO Q4H PRN 7 days oxycodone-acetaminophen 5-325 mg 1 tab PO Q4H PRN phenazopyridine (Pyridium) 100 mg PO TID PRN 4 days phenazopyridine (Pyridium) 100 mg PO TID PRN 4 days sildenafil 100 mg PO ONCE PRN 30 days simvastatin 20 mg PO QPM sulfamethoxazole-trimethoprim 800-160 mg (Bactrim DS) 1 tab PO BID 5 days tadalafil 10 mg PO DAILY 90 days tamsulosin 0.4 mg PO BEDTIME 14 days HPI HPI Comments History of Present Illness Details Moises is a pleasant gentleman from [place]. He is a patient of Dr. Mcmanus. He is seen for the following urologic conditions - erectile dysfunction with background diabetes - bladder outlet obstruction Pain with prior incision Penile pump deflated Since persistent issues with repeat MRI Does have some concern about urination with weakness of stream Trial tamsulosin Two month follow-up Erectile dysfunction Long-term type 2 diabetic On medication for hypertension and dyslipidemia Prior treatment for syphilis Failing on demand Viagra 03/28 Penile Prosthesis Placement Current therapy daily 10 mg tadalafil with on demand sildenafil 100 mg PFSH Medical History Diabetes Elevated cholesterol HTN (hypertension) Surgical History History of implantation of penile prosthesis Family History Mother No problems noted. Father No problems noted. Social History Household Members: None Housing: House Are you a primary manager urgent care to a significant other at home: No Do you presently have visiting nurse or other home services: No Patient Tobacco Use Status: Never used Tobacco Review of Systems Const Denies chills and Denies fever(s) Card Reports no additional complaints and Denies syncope Resp Denies cough GI Denies abdominal pain and Denies heartburn Reports as per HPI and Denies change in libido Neuro Denies syncope Psych Denies change in libido Endo Denies change in libido Physical Exam Const General: cooperative, healthy appearing, comfortable and no acute distress Orientation/consciousness: patient oriented x3 HEENT Face and sinus: Yes normal facial exam Mouth: moist mucous membranes Neck Neck: Yes normal visual inspection, Yes full ROM and Yes trachea midline Chest Chest palpation & inspection: normal inspection of the chest Resp Effort & Inspection: normal respiratory effort, able to speak in complete sentences and no respiratory distress GI Inspection: Yes normal to inspection Back/Spine/Pelvis Cervical Spine: normal cervical lordosis Thoracic/Lumbar Spine: thoracic and lumbar spine normal to inspection Skin General skin exam: no rashes or lesions noted Neuro General: patient oriented x3, gait normal, tone normal and moves all extremities Extrem General: Yes normal to inspection and Yes capillary refill normal Office Procedures Cystoscopy Consent Discussed risk and benefit or proposed procedure with the patient. Information consent for procedure given to the patient. Discussed technical aspects, risks, benefits and alternatives in full. Addressed all of the patient's questions and concerns regarding the procedure. The patient demonstrated knowledge and understanding. They wish to proceed with this procedure. Preparation The patient was prepped in the usual manner. A sewage disposal engineer was present and in the room. Genitalia was prepped with betadine solution in a sterile manner. Lidocaine Jelly 2% was placed into the urethra and 16Fr flexible Olympus cystoscope was inserted into the meatus after adequate lubrication. [id number] DISPOSABLE SCOPE URO-G FLEXIBLE SCOPE Procedure code (CPT) selection complete Office Meds lidocaine HCl 2 % mucosal jelly in applicator Performing Provider: Efra Zambrano MD Performing [facility] Administered by: Gustavo Ruiz LPN on 05/31/23 13:17 Dose Route Admin Location Dispensed Lot Number Expiration Date NDC Alumnae Secretary 10 mL intra-urethral 10 mL nitrofurantoin monohydrate/macrocrystals 100 mg capsule Performing Provider: Efra Zambrano MD Performing Location: [facility] Administered by: Gustavo Ruiz LPN on 05/31/23 13:17 Dose Route Admin Location Dispensed Lot Number Expiration Date NDC Alumnae Secretary 100 mg PO 1 cap naproxen 500 mg tablet Performing Provider: Efra Zambrano MD Performing Location: [facility] Administered by: Gustavo Ruiz LPN on 05/31/23 13:17 Dose Route Admin Location Dispensed Lot Number Expiration Date NDC Alumnae Secretary 500 mg PO 1 tab Results AMB Urinalysis, Automated UA Leukoctes 15 Xochilt/uL Last Edit by Deon Britt [facility] on 05/31/23 13:12 UA Nitrite Negative Last Edit by Deon Britt [facility] on 05/31/23 13:12 UA Urobilinogen 0.2 mg/dL Last Edit by Deon Britt [facility] on 05/31/23 13:12 UA Protein 15 mg/dL Last Edit by Deon Britt [facility] on 05/31/23 13:12 UA pH 5.5 Last Edit by Deon Britt [facility] on 05/31/23 13:12 UA Blood 0 Emmanuel/uL Last Edit by Deon Britt [facility] on 05/31/23 13:12 UA Specific [place] 1.015 Last Edit by Deon Britt [facility] on 05/31/23 13:12 UA Ketone Negative Last Edit by Deon Britt [facility] on 05/31/23 13:12 UA Bilirubin 0 mg/dL Last Edit by Deon Britt [facility] on 05/31/23 13:12 UA Glucose 1000 mg/dL Last Edit by Deon Britt [facility] on 05/31/23 13:12 3+ Deon Britt 05/31/23 13:12 Results Reviewed Results Reviewed: Laboratory Last Values Urine pH (Auto) 5.5 05/31/23 13:10 Specific [place] (Auto) 1.015 05/31/23 13:10 Urine Protein (Auto) 15 mg/dL 05/31/23 13:10 Glucose (UA)(Auto) 1000 mg/dL 05/31/23 13:10 Urine Ketones (Auto) Negative 05/31/23 13:10 Urine Blood (Auto) 0 Emmanuel/uL 05/31/23 13:10 Urine Nitrite (Auto) Negative 05/31/23 13:10 Urine Bilirubin (Auto) 0 mg/dL 05/31/23 13:10 Urine Urobilinogen (Auto) 0.2 mg/dL 05/31/23 13:10 Leukocyte Esterase (Auto) 15 Xochilt/uL 05/31/23 13:10 Assessment & Plan Assessment & Plan (1) Disorder of implanted penile prosthesis: Code(s): T83.9XXA - Unspecified complication of genitourinary prosthetic device, implant and graft, initial encounter Plan Keep follow-up Orders: Orders AMB Cystoscopy 05/31/23 N48.30 - Priapism, unspecified, R30.0 - Dysuria AMB Urinalysis Automated 05/31/23 Z13.9 - Encounter for screening, unspecified MR pelvis wo/w con 05/31/23 C61 - Malignant neoplasm of prostate, T83.9XXA - Unspecified complication of genitourinary prosthetic device, implant and graft, initial encounter Medications: New amoxicillin-pot clavulanate 500-125 mg (Augmentin) 1 tab PO Q8H 21 tabs 0RF 7 days R30.0 - Dysuria, N39.0 - Urinary tract infection, site not specified Patient Instructions: Imaging studies, laboratory and physical exam results were discussed and reviewed in detail. No major barriers to patient understanding were identified. An opportunity to ask questions regarding the treatment plan was provided. All questions were answered. The patient expressed understanding and agreement with the above treatment plan. The patient is aware they should contact our office by phone for worsening of their current condition or the appearance of new urologic symptoms. Compliance is encouraged with any medications and followup testing that is ordered. It is a privilege to participate in the urologic care of your patient. If you have any questions or concerns regarding treatment for the above conditions, or other urologic issues, please do not hesitate to contact me. The office telephone contact is [phone]. This note is constructed using voice recognition software. While every effort has been made to ensure accuracy care consultant errors may have been included. Yours sincerely, Dr Efra Zambrano MD, [facility] - Urology Providers of Expert, Compassionate Care for the Genitourinary System Coding Level of Care Code Est Pt Level 3 (96417) Diagnoses Disorder of implanted penile prosthesis T83.9XXA CPT Codes Cystoscopy - CPT: [id number] ([id number])
== END ==
PROVIDERS: PCP Family Medicine; Visit Provider Urology
DX: R30.0 Dysuria (principal); T83.9XXA Unspecified complication of genitourinary prosthetic device, implant and graft, initial encounter; N48.30 Priapism, unspecified
CPT/HCPCS: 52000; 99024

== ENCOUNTER → 2023-05-31 12:48 | Outpatient (BNVA) | payer MEDICAID, SELFPAY | PROVIDERS: PCP Family Medicine; Visit Provider Urology | DX: R30.0 Dysuria (principal); N48.30 Priapism, unspecified; T83.9XXA Unspecified complication of genitourinary prosthetic device, implant and graft, initial encounter | CPT/HCPCS: 52000; 81003; 99212 ==

== ENCOUNTER 2023-07-04 11:25 | Outpatient (AMB) | payer MEDICAID, SELFPAY ==
--- NOTE | 2023-07-04 11:27 | A.OFFVIS_ITS ---
Intake Intake Visit Reasons: 6w follow up Intake Note: Patient is Present for Follow Up Urology Medication:TADALAFIL Antibiotic Allergies: NKA Blood Thinners:ACETAMINOPHEN Pharmacy: [facility] Software Support Required: No Accompanied by: Self / Same As Patient Allergies No Known Allergies Allergy (Verified 05/31/23 13:08) HPI HPI Comments History of Present Illness Details Moises is a pleasant gentleman from [place]. He is a patient of Dr. Mcmanus. He is seen for the following urologic conditions - erectile dysfunction with background d janna - bladder outlet obstruction Doing well with penile pump Very happy now with count results Does have some concern about urination with weakness of stream Trial tamsulosin Two month follow-up Erectile dysfunction Long-term type 2 diabetic On medication for hypertension and dyslipidemia Prior treatment for syphilis Failing on demand Viagra 03/28 Penile Prosthesis Placement Current therapy daily 10 mg tadalafil with on demand sildenafil 100 mg PFSH Medical History Diabetes Elevated cholesterol HTN (hypertension) Surgical History History of implantation of penile prosthesis Family History Mother No problems noted. Father No problems noted. Social History Household Members: None Housing: House Are you a primary certified social workers in health care to a significant other at home: No Do you presently have visiting nurse or other home services: No Patient Tobacco Use Status: Never used Tobacco Review of Systems Const Denies chills and Denies fever(s) Card Reports no additional complaints and Denies syncope Resp Denies cough GI Denies abdominal pain and Denies heartburn Reports as per HPI and Denies change in libido Neuro Denies syncope Psych Denies change in libido Endo Denies change in libido Physical Exam Const General: cooperative, healthy appearing, comfortable and no acute distress Orientation/consciousness: patient oriented x3 HEENT Face and sinus: Yes normal facial exam Mouth: moist mucous membranes Neck Neck: Yes normal visual inspection, Yes full ROM and Yes trachea midline Chest Chest palpation & inspection: normal inspection of the chest Resp Effort & Inspection: normal respiratory effort, able to speak in complete sentences and no respiratory distress GI Inspection: Yes normal to inspection Back/Spine/Pelvis Cervical Spine: normal cervical lordosis Thoracic/Lumbar Spine: thoracic and lumbar spine normal to inspection Skin General skin exam: no rashes or lesions noted Neuro General: patient oriented x3, gait normal, tone normal and moves all extremities Extrem General: Yes normal to inspection and Yes capillary refill normal Results AMB Urinalysis, Automated UA Leukoctes 0 Xochilt/uL Last Edit by GENARO Bonner on 07/04/23 11:49 UA Nitrite Negative Last Edit by GENARO Bonner on 07/04/23 11:49 UA Urobilinogen 0.2 mg/dL Last Edit by Deon Britt Elvis on 07/04/23 11:4 9 UA Protein 0 mg/dL Last Edit by GENARO Bonner on 07/04/23 11:49 UA pH 5.5 Last Edit by GENARO Bonner on 07/04/23 11:49 UA Blood 0 Emmanuel/uL Last Edit by Deon Britt Elvis on 07/04/23 11:49 UA Specific [place] 1.015 Last Edit by GENARO Bonner on 07/04/23 11: 49 UA Ketone Negative Last Edit by Deon Britt Elvis on 07/04/23 11:49 UA Bilirubin 0 mg/dL Last Edit by GENARO Bonner on 07/04/23 11:49 UA Glucose 500 mg/dL Last Edit by Deon Britt Elvis on 07/04/23 11:49 2+ Deon Britt 07/04/23 11:49 Results Reviewed Results Reviewed: Laboratory Last Values Urine pH (Auto) 5.5 07/04/23 11:47 Specific [place] (Auto) 1.015 07/04/23 11:47 Urine Protein (Auto) 0 mg/dL 07/04/23 11:47 Glucose (UA)(Auto) 500 mg/dL 07/04/23 11:47 Urine Ketones (Auto) Negative 07/04/23 11:47 Urine Blood (Auto) 0 Emmanuel/uL 07/04/23 11:47 Urine Nitrite (Auto) Negative 07/04/23 11:47 Urine Bilirubin (Auto) 0 mg/dL 07/04/23 11:47 Urine Urobilinogen (Auto) 0.2 mg/dL 07/04/23 11:47 Leukocyte Esterase (Auto) 0 Xochilt/uL 07/04/23 11:47 Assessment & Plan Assessment & Plan (1) BPH w urinary obs/LUTS: Code(s): N40.1 - Benign prostatic hyperplasia with lower urinary tract symptoms; N13.8 - Other obstructive and reflux uropathy (2) Erectile dysfunction associated with type 2 diabetes mellitus: Code(s): E11.69 - Type 2 diabetes mellitus with other specified complication; N52.1 - Erectile dysfunction due to diseases classified elsewhere Plan Trial tamsulosin Two month follow-up tele Orders: Orders AMB Urinalysis Automated Today Z13.9 - Encounter for screening, unspecified Medications: New tamsulosin 0.4 mg PO BEDTIME 30 days 30 caps 1RF N13.8 - Other obstructive and reflux uropathy, N40.1 - Benign prostatic hyperplasia with lower urinary tract symptoms, R35.1 - Nocturia Patient Instructions: Imaging studies, laboratory and physical exam results were discussed and reviewed in detail. No major barriers to patient understanding were identified. An opportunity to ask questions regarding the treatment plan was provided. All questions were answered. The patient expressed understanding and agreement with the above treatment plan. The patient is aware they should contact our office by phone for worsening of their current condition or the appearance of new urologic symptoms. Compliance is encouraged with any medications and followup testing that is ordered. It is a privilege to participate in the urologic care of your patient. If you have any questions or concerns regarding treatment for the above conditions, or other urologic issues, please do not hesitate to contact me. The office telephone contact is [phone]. This note is constructed using voice recognition software. While every effort has been made to ensure accuracy sales and events coordinator errors may have been included. Yours sincerely, Dr Efra Zambrano MD, [facility] - Urology Providers of Expert, Compassionate Care for the Genitourinary System Coding Level of Care Code Est Pt Level 4 (62194) Diagnoses BPH w urinary obs/LUTS N40.1; N13.8 Erectile dysfunction associated with type 2 diabetes mellitus E11.69; N52.1
== END 2023-07-04 12:02 | disposition home or self-care (01) ==
PROVIDERS: PCP Family Medicine; Visit Provider Urology
DX: N40.1 Benign prostatic hyperplasia with lower urinary tract symptoms (principal); N13.8 Other obstructive and reflux uropathy; E11.69 Type 2 diabetes mellitus with other specified complication; N52.1 Erectile dysfunction due to diseases classified elsewhere; Z13.9 Encounter for screening, unspecified
CPT/HCPCS: 99024

== ENCOUNTER → 2023-07-04 11:25 | Outpatient (BNVA) | payer MEDICAID, SELFPAY | PROVIDERS: PCP Family Medicine; Visit Provider Urology | DX: N40.1 Benign prostatic hyperplasia with lower urinary tract symptoms (principal); N13.8 Other obstructive and reflux uropathy; E11.69 Type 2 diabetes mellitus with other specified complication; N52.1 Erectile dysfunction due to diseases classified elsewhere | CPT/HCPCS: 81003; 99212 ==

== ENCOUNTER 2023-11-16 14:54 | Outpatient (AMB) | payer MEDICAID, SELFPAY ==
--- NOTE | 2023-11-16 14:57 | MHC.OFFVIS ---
Intake Visit Reasons: 2M Med Review(Tamsulosin) Confirmed Intake Note: Patient is Present for Follow Up Urology Medication: Tamsulosin (Patient states he is not taking) Antibiotic Allergies: none Blood Thinners: None PVR: 99ml Patient states that when he ejaculates the tip of his penis hurts. Patient states that he feels like he is having some urinary issues Allergies No Known Allergies Allergy (Verified 11/16/23 15:08) HPI Comments Details: Moises is a pleasant gentleman from [place]. He is a patient of Dr. Mcmanus. He is seen for the following urologic conditions - erectile dysfunction with background diabetes - bladder outlet obstruction Still doing well with penile pump Benefit from tamsulosin Refill medication six-month follow-up Is planning a trip back to [place] Erectile dysfunction Long-term type 2 diabetic On medication for hypertension and dyslipidemia Prior treatment for syphilis Failing on demand Viagra 03/28 Penile Prosthesis Placement Current therapy daily 10 mg tadalafil with on demand sildenafil 100 mg PFSH Medical History Diabetes Elevated cholesterol HTN (hypertension) Surgical History History of implantation of penile prosthesis Family History Mother No problems noted. Father No problems noted. Social History Household Members: None Housing: House Are you a primary after school caregiver to a significant other at home: No Do you presently have visiting nurse or other home services: No Patient Tobacco Use Status: Never used Tobacco Review of Systems Const Denies chills and Denies fever(s) Card Reports no additional complaints and Denies syncope Resp Denies cough GI Denies abdominal pain and Denies heartburn Reports as per HPI and Denies change in libido Neuro Denies syncope Psych Denies change in libido Endo Denies change in libido Physical Exam Const General: cooperative, healthy appearing, comfortable and no acute distress Orientation/consciousness: patient oriented x3 HEENT Face and sinus: Yes normal facial exam Mouth: moist mucous membranes Neck Neck: Yes normal visual inspection, Yes full ROM and Yes trachea midline Chest Chest palpation & inspection: normal inspection of the chest Resp Effort & Inspection: normal respiratory effort, able to speak in complete sentences and no respiratory distress GI Inspection: Yes normal to inspection Back/Spine/Pelvis Cervical Spine: normal cervical lordosis Thoracic/Lumbar Spine: thoracic and lumbar spine normal to inspection Skin General skin exam: no rashes or lesions noted Neuro General: patient oriented x3, gait normal, tone normal and moves all extremities Extrem General: Yes normal to inspection and Yes capillary refill normal Office Procedures Post Void Residual Post Residual Void Post Void Residual (PVR): 99 [id number] Void Residual by ultrasound Assessment & Plan Assessment & Plan (1) BPH w urinary obs/LUTS: Code(s): N40.1 - Benign prostatic hyperplasia with lower urinary tract symptoms; N13.8 - Other obstructive and reflux uropathy Category: Medical (2) Erectile dysfunction associated with type 2 diabetes mellitus: Code(s): E11.69 - Type 2 diabetes mellitus with other specified complication; N52.1 - Erectile dysfunction due to diseases classified elsewhere Category: Medical Plan Six-month follow-up Orders: Orders AMB Post Void Residual by ultrasound 11/16/23 N13.8 - Other obstructive and reflux uropathy, N40.1 - Benign prostatic hyperplasia with lower urinary tract symptoms Medications: Refilled tamsulosin 0.4 mg PO BEDTIME 30 caps 1RF 30 days N13.8 - Other obstructive and reflux uropathy, N40.1 - Benign prostatic hyperplasia with lower urinary tract symptoms, R35.1 - Nocturia Patient Instructions: Imaging studies, laboratory and physical exam results were discussed and reviewed in detail. No major barriers to patient understanding were identified. An opportunity to ask questions regarding the treatment plan was provided. All questions were answered. The patient expressed understanding and agreement with the above treatment plan. The patient is aware they should contact our office by phone for worsening of their current condition or the appearance of new urologic symptoms. Compliance is encouraged with any medications and followup testing that is ordered. It is a privilege to participate in the urologic care of your patient. If you have any questions or concerns regarding treatment for the above conditions, or other urologic issues, please do not hesitate to contact me. The office telephone contact is [phone]. This note is constructed using voice recognition software. While every effort has been made to ensure accuracy solar energy installation manager errors may have been included. Yours sincerely, Dr Efra Zambrano MD, [facility] - Urology Providers of Expert, Compassionate Care for the Genitourinary System
== END 2023-11-16 15:24 | disposition home or self-care (01) ==
PROVIDERS: PCP Family Medicine; Visit Provider Urology
DX: N40.1 Benign prostatic hyperplasia with lower urinary tract symptoms (principal); N13.8 Other obstructive and reflux uropathy; E11.69 Type 2 diabetes mellitus with other specified complication; N52.1 Erectile dysfunction due to diseases classified elsewhere
CPT/HCPCS: 99213

== ENCOUNTER → 2023-11-16 14:54 | Outpatient (BNVA) | payer MEDICAID, SELFPAY | PROVIDERS: PCP Family Medicine; Visit Provider Urology | DX: N40.1 Benign prostatic hyperplasia with lower urinary tract symptoms (principal); N13.8 Other obstructive and reflux uropathy; E11.69 Type 2 diabetes mellitus with other specified complication; N52.1 Erectile dysfunction due to diseases classified elsewhere | CPT/HCPCS: 51798; 99212 ==

== ENCOUNTER 2023-12-05 10:15 | Outpatient (REF) | payer MEDICAID, SELFPAY ==
[2023-12-05 12:15] LABS: Alkaline Phosphatase 46 U/L (39-117); HDL Cholesterol 34 mg/dL (>40)
[2023-12-05 12:35] LABS: Reflex LDLD? No
== END 2023-12-05 10:16 | disposition home or self-care (01) ==
LOC: HO.HHCL 10:15
PROVIDERS: Visit Provider Family Medicine
DX: E78.5 Hyperlipidemia, unspecified (principal); R42 Dizziness and giddiness; E11.69 Type 2 diabetes mellitus with other specified complication
CPT/HCPCS: 36415; 80053; 80061; 82043; 82570; 85025

== ENCOUNTER 2023-12-18 08:54 | Outpatient (REF) | payer MEDICAID, SELFPAY ==
--- NOTE | ~2023-12-18 | XR_ITS ---
EXAMINATION: XR RIBS, RIGHT CLINICAL INFORMATION: Pain after massage right anterior ribs adjacent to sternum. COMPARISON: None available. TECHNIQUE: 2 views of the chest and 5 views of the right ribs were obtained. FINDINGS: Lungs are clear. No consolidation, pneumothorax, or pleural effusion. The cardiomediastinal silhouette and pulmonary vasculature are normal. Osseous structures are unremarkable. Ribs are intact. No displaced fractures are identified. XR/XR ribs RT min 3V w CXR1V IMPRESSION: 1. No acute intrathoracic disease. 2. No displaced rib fractures.
== END 2023-12-18 08:55 | disposition home or self-care (01) ==
LOC: HO.HHCX 08:54
PROVIDERS: Visit Provider Internal Medicine
DX: R07.82 Intercostal pain (principal)
CPT/HCPCS: 71101

== ENCOUNTER 2023-12-19 15:06 | Outpatient (AMB) | payer MEDICAID, SELFPAY ==
--- NOTE | 2023-12-19 15:14 | A.OFFVIS_ITS ---
Intake Visit Reasons: 1m follow up Intake Note: Patient is Present for Follow Up Urology Medication: Tamsulosin Antibiotic Allergies: none Blood Thinners: None Information Specialist Required: No Accompanied by: Self / Same As Patient Allergies No Known Allergies Allergy (Verified 11/16/23 15:08) Medication List - Last Reconciled 12/19/23 by Efra Zambrano MD diclofenac sodium 1% 2 grams topical QID empagliflozin (Jardiance) 10 mg PO QAM lancets (TRUEplus Lancets) As directed lisinopril 10 mg PO DAILY simvastatin 20 mg PO QPM tamsulosin 0.4 mg PO BEDTIME 90 days HPI Comments Details: Moises is a pleasant gentleman from [place]. He is a patient of Dr. Mcmanus. He is seen for the following urologic conditions - erectile dysfunction with background diabetes - bladder outlet obstruction Still doing well with penile prosthetic Benefit from tamsulosin Refill medication six-month follow-up Is planning a trip back to [place] Erectile dysfunction Long-term type 2 diabetic On medication for hypertension and dyslipidemia Prior treatment for syphilis Failing on demand Viagra 03/28 Penile Prosthesis Placement Lower urinary tract symptoms Response to tamsulosin PFSH Medical History Diabetes Elevated cholesterol HTN (hypertension) Surgical History History of implantation of penile prosthesis Family History Mother No problems noted. Father No problems noted. Social History Household Members: None Housing: House Are you a primary complex care nurse to a significant other at home: No Do you presently have visiting nurse or other home services: No Patient Tobacco Use Status: Never used Tobacco Review of Systems Const Denies chills and Denies fever(s) Card Reports no additional complaints and Denies syncope Resp Denies cough GI Denies abdominal pain and Denies heartburn Reports as per HPI and Denies change in libido Neuro Denies syncope Psych Denies change in libido Endo Denies change in libido Physical Exam Const General: cooperative, healthy appearing, comfortable and no acute distress Orientation/consciousness: patient oriented x3 HEENT Face and sinus: Yes normal facial exam Mouth: moist mucous membranes Neck Neck: Yes normal visual inspection, Yes full ROM and Yes trachea midline Chest Chest palpation & inspection: normal inspection of the chest Resp Effort & Inspection: normal respiratory effort, able to speak in complete sentences and no respiratory distress GI Inspection: Yes normal to inspection Back/Spine/Pelvis Cervical Spine: normal cervical lordosis Thoracic/Lumbar Spine: thoracic and lumbar spine normal to inspection Skin General skin exam: no rashes or lesions noted Neuro General: patient oriented x3, gait normal, tone normal and moves all extremities Extrem General: Yes normal to inspection and Yes capillary refill normal Assessment & Plan Assessment & Plan (1) BPH w urinary obs/LUTS: Code(s): N40.1 - Benign prostatic hyperplasia with lower urinary tract symptoms; N13.8 - Other obstructive and reflux uropathy Category: Medical (2) Erectile dysfunction associated with type 2 diabetes mellitus: Code(s): E11.69 - Type 2 diabetes mellitus with other specified complication; N52.1 - Erectile dysfunction due to diseases classified elsewhere Category: Medical Plan Six-month follow-up Patient Instructions: Imaging studies, laboratory and physical exam results were discussed and reviewed in detail. No major barriers to patient understanding were identified. An opportunity to ask questions regarding the treatment plan was provided. All questions were answered. The patient expressed understanding and agreement with the above treatment plan. The patient is aware they should contact our office by phone for worsening of their current condition or the appearance of new urologic symptoms. Compliance is encouraged with any medications and followup testing that is ordered. It is a privilege to participate in the urologic care of your patient. If you have any questions or concerns regarding treatment for the above conditions, or other urologic issues, please do not hesitate to contact me. The office telephone contact is [phone]. This note is constructed using voice recognition software. While every effort has been made to ensure accuracy physician practice administrator errors may have been included. Yours sincerely, Dr Efra Zambrano MDISREAL [facility] - Urology Providers of Expert, Compassionate Care for the Genitourinary System Coding Level of Care Code Est Pt Level 3 (79321) Diagnoses BPH w urinary obs/LUTS N40.1; N13.8 Erectile dysfunction associated with type 2 diabetes mellitus E11.69; N52.1
== END 2023-12-19 15:46 | disposition home or self-care (01) ==
PROVIDERS: PCP Family Medicine; Visit Provider Urology
DX: N40.1 Benign prostatic hyperplasia with lower urinary tract symptoms (principal); N13.8 Other obstructive and reflux uropathy; E11.69 Type 2 diabetes mellitus with other specified complication; N52.1 Erectile dysfunction due to diseases classified elsewhere
CPT/HCPCS: 99213

== ENCOUNTER → 2023-12-19 15:06 | Outpatient (BNVA) | payer MEDICAID, SELFPAY | PROVIDERS: PCP Family Medicine; Visit Provider Urology | DX: N40.1 Benign prostatic hyperplasia with lower urinary tract symptoms (principal); N13.8 Other obstructive and reflux uropathy; E11.69 Type 2 diabetes mellitus with other specified complication; N52.1 Erectile dysfunction due to diseases classified elsewhere | CPT/HCPCS: 99212 ==